=== PATIENT | female | born 1990 | race Caucasian/White ===

== ENCOUNTER 2016-04-06 02:11 | Emergency (ER) | payer OTHER ==
[~2016-04-06] VITALS: Ht 177.8 cm; Wt 79.5 kg
[~2016-04-06 02:11] MED LIST: ZOFRAN4 MG PO
[2016-04-06] MEDS ORDERED: REGLAN10 MG PO (02:58)
[2016-04-06] MEDS ORDERED: FIORICET 50-301 EACH PO (02:58)
[2016-04-06 03:06] VITALS: BP 124/88
== END 2016-04-06 03:06 | disposition home or self-care (01) ==
LOC: EME 02:11
DX: G43.909 Migraine, unspecified, not intractable, without status migrainosus (principal)
CPT/HCPCS: 99281; 99284; J1885